=== PATIENT | male | born 1960 | race Hispanic/Latino ===

== ENCOUNTER 2019-12-11 16:40 | Emergency (ER) | payer SELFPAY ==
[2019-12-11] MEDS ORDERED: ASPIRIN 325 MG TAB PO ONE (17:19)
[2019-12-11] MEDS ORDERED: ONDANSETRON 4 MG/2 ML INJ IV ONE (17:19)
[2019-12-11] MEDS ORDERED: fentaNYL 100 MCG/2 ML INJ IV ONE (17:19)
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
[2019-12-11 18:12] LABS: Basophils # (Auto) 0.1 K/mm3 (0.0-0.1); Basophils % (Auto) 0.9 % (0.0-1.8); Eosinophils # (Auto) 0.3 K/mm3 (0.0-0.4); Eosinophils % (Auto) 2.4 % (0.0-4.3); Hematocrit 42.8 % (35.5-45.6); Lymphocytes # (Auto) 3.5 K/mm3 (1.2-5.4); Lymphocytes % (Auto) 30.1 % (13.4-35.0); Mean Corpuscular HGB Conc 33 % (32-34); Mean Corpuscular Volume 95 fl (84-94); Monocytes # (Auto) 1.6 K/mm3 (0.0-0.8); Monocytes % (Auto) 14.2 % (0.0-7.3); Platelet Count 239 K/mm3 (140-440); Red Blood Count 4.51 M/mm3 (3.65-5.03); Red Cell Distribution Width 15.2 % (13.2-15.2)
[2019-12-11 18:23] LABS: INR 0.95 (0.87-1.13)
[2019-12-11 18:31] LABS: Creatine Kinase MB 5.3 ng/mL (0.0-4.0)
[2019-12-11 18:33] LABS: BUN/Creatinine Ratio 7; Blood Urea Nitrogen 5 mg/dL (9-20); Calcium 8.3 mg/dL (8.4-10.2); Hemolysis Index 12
--- NOTE | 2019-12-11 19:27 | XRay Report ---
CHEST 1 VIEW INDICATION / CLINICAL INFORMATION: Chest pain. COMPARISON: None available. FINDINGS: SUPPORT DEVICES: None. HEART / MEDIASTINUM: Heart size appears normal. Hazy opacity projects over the lower mediastinum but does not obscure the right heart border. LUNGS / PLEURA: Lungs are clear. No evident pleural fluid. No pneumothorax. There are old rib fractures on the right side. No acute skeletal abnormalities seen. IMPRESSION: Abnormal chest radiograph with masslike opacity projecting over the mediastinum. This could represent a markedly dilated esophagus or a large hiatal hernia versus other mediastinal mass. Further evaluat ion with contrast-enhanced chest CT is recommended. Signer Name: Lincoln Swann MD Signed: 12/11/2019 7:23 PM Workstation Name: [id number]
[2019-12-11] MEDS ORDERED: THIAMINE 100 MG, FOLIC ACID 1 MG, MULTIPLE VITAMIN INJ, ADULT 10 ML in SODIUM CHLORIDE ... IV ONE (19:53)
[2019-12-11] MEDS ORDERED: MAGNESIUM SULFATE 2 GM/50 ML BAG IV ONE (19:53)
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
--- NOTE | 2019-12-11 21:31 | Cat Scan Report ---
CTA CHEST WITH IV CONTRAST INDICATION / CLINICAL INFORMATION: MAIN: Chest pain, abnormal chest x-ray. OMNIPAQUE 350, 100ML GIVEN.. TECHNIQUE: Axial CT images were obtained through the chest after injection of 100 MLO Omnipaque 350 IV contrast. 3 plane MIP and/or 3D reconstructions were produced. All CT scans at this location are performed usi ng CT dose reduction for ALARA by means of automated exposure control. COMPARISON: Same-day chest radiograph FINDINGS: PULMONARY ARTERIES: No pulmonary emboli. THORACIC AORTA: No significant abnormality. HEART: No significant abnormality. CORONARY ARTERIES: No significant calcification. PLEURA: No pleural effusion. No pneumothorax. LYMPH NODES: No adenopathy. LUNGS: No acute air space or interstitial disease. Mild atelectatic changes are present, mostly in th e right lower lobe. ADDITIONAL FINDINGS: Vague mediastinal opacity on the previous chest radiograph correlates with a lar ge hernia. The patient appears to be status post Iver-Uziel esophagectomy and at least partial gastre ctomy with colonic interposition graft. The colonic graft is filled by a large volume of fluid. Proxi mal small bowel below the diaphragm has normal caliber. UPPER ABDOMEN: No acute findings. SKELETAL STRUCTURES: No significant osseous abnormality. IMPRESSION: 1. No CT evidence for pulmonary embolism. 2. No acute airspace disease. Area of compressive atelectasis in the right lower lobe is noted, poss ibly chronic. 3. The patient appears to have previously undergone esophagectomy and probably at least a partial re section of the stomach, with colonic interposition graft. The graft is fluid-filled nearly to the lev el of the thoracic inlet. Signer Name: Lincoln Swann MD Signed: 12/11/2019 9:26 PM Workstation Name: [id number]
[2019-12-12] MEDS ORDERED: ACETAMINOPHEN 500 MG TAB PO ONE (00:59)
[2019-12-12 01:12] VITALS: BP 136/82
== END 2019-12-12 01:53 | disposition home or self-care (01) ==
LOC: ED 16:40
DX: R07.89 Other chest pain (principal); R06.02 Shortness of breath; R05 Cough; I10 Essential (primary) hypertension; F41.9 Anxiety disorder, unspecified; F32.89 Other specified depressive episodes; F12.10 Cannabis abuse, uncomplicated; Z87.891 Personal history of nicotine dependence
CPT/HCPCS: 36415; 71045; 71275; 80048; 82550; 82553; 83735; 83880; 84484; 85025; 85379; 85610; 93005; 93010; 96365; 96366; 99285; J2405; J3010; J3411; J3475; J7030; Q9967; 80320; G0480